=== PATIENT | male | born 1965 | race Caucasian/White ===

== ENCOUNTER 2016-12-19 06:55 | Day surgery (SDC) | payer BC ==
[~2016-12-19 06:55] MED LIST: Lactated Ringers 1,000 ML IV SCH
--- NOTE | 2016-12-19 07:41 | PCM.PREANE ---
Preanesthetic Assessment - Anesthesia/Transfusion/Family Hx Anesthesia History: Prior Anesthesia Without Reaction Family History of Anesthesia Reaction: No Transfusion History: No Prior Transfusion(s) Intubation History: Unknown - Review of Systems General: No Symptoms Pulmonary: No Symptoms Cardiovascular: No Symptoms Gastrointestinal: Other (loose stools, h/o colon polyps) Neurological: No Symptoms Other: Reports: None - Physical Assessment Height: 1.93 m Weight: 124.284 kg ASA Class: 3 Mental Status: Alert & Oriented x3 Airway Class: Mallampati = 3 Dentition: Reports: [place]s) (multiple crowns upper and lower) Thyro-Mental Finger Breadths: 2 Mouth Opening Finger Breadths: 3 ROM/Head Extension: Full Lungs: Clear to Auscultation, Normal Respiratory Effort Cardiovascular: Regular Rate, Regular Rhythm - Allergies Allergies/Adverse Reactions: Allergies Allergy/AdvReac Type Severity Reaction Status Date / Time No Known Allergies Allergy Verified 06/26/15 15:10 - Blood Blood Available: No - Anesthesia Plan Pre-Op Medication Ordered: None - Acknowledgements Anesthesia Type Planned: MAC Pt an Appropriate Candidate for the Planned Anesthesia: Yes Alternatives and Risks of Anesthesia Discussed w Pt/Guardian: Yes Pt/Guardian Understands and Agrees with Anesthesia Plan: Yes PreAnesthesia Questionnaire HEENT History: Reports: Allergic Rhinitis, Other (See Below) Other HEENT History: wears glasses Cardiovascular History: Reports: High Cholesterol, Hypertension Respiratory History: Reports: COPD, Sleep Apnea, Other (See Below) Other Respiratory History: "seasonal asthma", uses CPAP Gastrointestinal History: Reports: Colon Polyp, GERD Genitourinary History: Reports: BPH Musculoskeletal History: Reports: Arthritis, Back Pain, Chronic, Gout, Osteoarthritis Neurological History: Reports: None Psychiatric History: Reports: Anxiety Endocrine/Metabolic History: Reports: Diabetes, Type II, Obesity/BMI 30+ Hematologic History: Reports: None Immunologic History: Reports: None Oncologic (Cancer) History: Reports: None Dermatologic History: Reports: None - Infectious Disease History Infectious Disease History: Reports: Chicken Pox - Past Surgical History Head Surgeries/Procedures: Reports: None HEENT Surgical History: Reports: None Cardiovascular Surgical History: Reports: None Respiratory Surgical History: Reports: None GI Surgical History: Reports: Cholecystectomy, Colonoscopy (8 years ago) Male Surgical History: Reports: None Endocrine Surgical History: Reports: None Neurological Surgical History: Reports: None Musculoskeletal Surgical History: Reports: Arthroscopic Knee, Knee Replacement Other Musculoskeletal Surgeries/Procedures:: hx foot surgery, fasciotomy, left total knee arthroplasty - History Comment History Comment: etoh "occasional" - SUBSTANCE USE Smoking Status *Q: Former Smoker (quit 20 years ago) Tobacco Use Within Last Twelve Months:  Other Tobacco Use Within Last Twelve Months: quit smoking 25 yrs ago Recreational Drug Use History: No - HOME MEDS Home Medications: Home Meds ALPRAZolam [Alprazolam] 0.5 mg PO DAILY PRN 05/07/16 [History] Allopurinol [Zyloprim] 300 mg PO ACBREAKFAST 05/07/16 [History] Cholecalciferol (Vitamin D3) [Vitamin D3] 1,000 mg PO DAILY 05/07/16 [History] Fish Oil/[place]-3 Fatty Acids [Fish Oil 1,000 MG] 1,000 mg PO ASDIRECTED [History] Gabapentin [Gralise] 2 tab PO BEDTIME 05/07/16 [History] Lisinopril 10 mg PO DAILY 05/07/16 [History] Montelukast Sodium 10 mg PO BEDTIME PRN 05/07/16 [History] Pantoprazole Sodium [Protonix] 40 mg PO ACBREAKFAST 05/07/16 [History] Rosuvastatin [Crestor] 10 mg PO ASDIRECTED 05/07/16 [History] Vitamin B Complex 1 tab PO DAILY 05/07/16 [History] metFORMIN HCl [Metformin HCl] 500 mg PO TID 05/07/16 [History] Fluticasone/Vilanterol [Breo Ellipta 200-25 Mcg INH] 1 inhalation INH DAILY PRN 12/17/16 [History] Gabapentin [Neurontin] 300 mg PO ACBREAKFAST 12/17/16 [History] Indomethacin 50 mg PO TID PRN 12/17/16 [History] Mometasone Furoate [Nasonex] 1 spray NASBOTH DAILY PRN 12/17/16 [History] Ubidecarenone [Coq-10] 1 tab PO ASDIRECTED 12/17/16 [History] - CURRENT (IN HOUSE) MEDS Current Meds: Current Medications Lactated Ringer's (Ringers, Lactated) 1,000 mls @ 125 mls/hr IV ASDIRECTED [facility]
[2016-12-19] MEDS ORDERED: Propofol 200 MG/20 ML SDV ONE ×2 (07:49→08:53)
[2016-12-19] MEDS ORDERED: Midazolam 1 MG/ML 2 ML SDV ONE (07:49)
[2016-12-19] MEDS ORDERED: Lactated Ringers 1,000 ML IV SCH (09:15)
--- NOTE | 2016-12-19 09:19 | PCM.OPNOTE ---
- General Post-Op/Procedure Note Date of Surgery/Procedure: 12/19/16 Operative Procedure(s): Colonoscopy Pre Op Diagnosis: Personal history of colon polyps Post-Op Diagnosis: Sigmoid diverticulosis. Internal hemorrhoids Anesthesia Technique: MAC (ASA III) Primary Surgeon: Emil Jacob Condition: Good Free Text/Narrative:: Dictation [id number] CPT CODE 11007
[2016-12-19 10:37] VITALS: BP 109/58
--- NOTE | 2016-12-19 10:54 | OR ---
SURGEON: Emil Jacob M.D. DATE OF PROCEDURE: 12/19/2016 OPERATION PERFORMED: Colonoscopy. ANESTHESIA: MAC. ASA CLASSIFICATION: III. PREOPERATIVE DIAGNOSIS: Personal history of colon polyps. POSTOPERATIVE DIAGNOSIS: Sigmoid diverticulosis. Hemorrhoids. DESCRIPTION OF PROCEDURE: The patient was taken to the endoscopy room and positioned on the endoscopy table in the left lateral decubitus position. Time-out was called for appropriate identification of patient and procedure. Monitored anesthesia care was provided. The colonoscope was inserted into the rectum and advanced with moderate difficulty to the cecum where the colonoscope was retroflexed to visualize the ascending colon from below. The colonoscope was then straightened and slowly withdrawn. The cecum, ascending colon, hepatic flexure, transverse colon, splenic flexure, and descending colon showed no tumors, polyps, diverticula, or angiodysplastic changes. Sigmoid colon demonstrates moderate diverticular change. No stricture, spasm, or bleeding was noted. No polyps were encountered in the sigmoid colon. The colonoscope was then withdrawn to the rectum. The patient does have internal hemorrhoids. No acute bleeding. The colonoscope was retroflexed in the rectum to visualize the anal orifice from above. No tumors or polyps were seen. Again, I noted chronic hemorrhoidal changes. The colonoscope was then straightened, the rectum aspirated, and the colonoscope removed. The patient tolerated the procedure well and was taken to recovery room in stable condition. MERY REYES /[id number] YOGI
== END 2016-12-19 10:00 | disposition home or self-care (01) ==
LOC: MW.SDS 06:55
PROVIDERS: ATTEND Surgery
PROC: 0DJD8ZZ Inspection of Lower Intestinal Tract, Via Natural or Artificial Opening Endoscopic (ICD-10-PCS; principal; 2016-12-19)
DX: Z12.11 Encounter for screening for malignant neoplasm of colon (principal); K57.30 Diverticulosis of large intestine without perforation or abscess without bleeding; K64.8 Other hemorrhoids; Z87.19 Personal history of other diseases of the digestive system; F41.9 Anxiety disorder, unspecified; M19.90 Unspecified osteoarthritis, unspecified site; J44.9 Chronic obstructive pulmonary disease, unspecified; E11.9 Type 2 diabetes mellitus without complications; E78.5 Hyperlipidemia, unspecified; K21.9 Gastro-esophageal reflux disease without esophagitis; M10.9 Gout, unspecified; I10 Essential (primary) hypertension; E29.1 Testicular hypofunction; M75.42 Impingement syndrome of left shoulder; M17.12 Unilateral primary osteoarthritis, left knee; M19.019 Primary osteoarthritis, unspecified shoulder; G47.30 Sleep apnea, unspecified; E78.00 Pure hypercholesterolemia, unspecified; N40.0 Benign prostatic hyperplasia without lower urinary tract symptoms; E66.9 Obesity, unspecified; Z87.01 Personal history of pneumonia (recurrent); Z79.84 Long term (current) use of oral hypoglycemic drugs; Z79.899 Other long term (current) drug therapy; Z96.652 Presence of left artificial knee joint; Z90.49 Acquired absence of other specified parts of digestive tract; Z98.890 Other specified postprocedural states; Z87.891 Personal history of nicotine dependence; Z68.33 Body mass index [BMI] 33.0-33.9, adult; Z99.89 Dependence on other enabling machines and devices
CPT/HCPCS: 45378; 82962; J2250; J7120; 00810; J2704

== ENCOUNTER 2017-11-07 22:21 | Emergency (ER) | payer OTHER, BC ==
--- NOTE | 2017-11-07 22:38 | EDM.PDOC ---
ED HPI GENERAL MEDICAL PROBLEM - General Chief Complaint: Neuro Symptoms/Deficits Stated Complaint: NUMBNESS ON RIGHT SIDE, RT EAR PAIN, NUMB TONGUE Time Seen by Provider: 11/07/17 22:38 Source of Information: Reports: Patient - History of Present Illness INITIAL COMMENTS - FREE TEXT/NARRATIVE: HISTORY AND PHYSICAL: History of present illness: [Patient presents with right-sided facial weakness including the forehead, he noticed this this morning while shaving, he does have some ear pain and actually an ear infection on the left, as well as complains of tingling of the tongue dry irritated eye and headache no fever nausea vomiting chills sweats no chest pain shortness of breath dizziness or palpitation no bowel or urine symptoms] Review of systems: As per history of present illness and below otherwise all systems reviewed and negative. Past medical history: As per history of present illness and as reviewed below otherwise noncontributory. Surgical history: As per history of present illness and as reviewed below otherwise noncontributory. Social history: No reported history of drug or alcohol abuse. Family history: As per history of present illness and as reviewed below otherwise noncontributory. Physical exam: HEENT: Atraumatic, normocephalic, pupils reactive, negative for conjunctival pallor or scleral icterus, mucous membranes moist, throat clear, neck supple, nontender, trachea midline. Left otitis media Lungs: Clear to auscultation, breath sounds equal bilaterally, chest nontender. Heart: S1S2, regular, negative for clicks, rubs, or JVD. Abdomen: Soft, nondistended, nontender. Negative for masses or hepatosplenomegaly. Negative for costovertebral tenderness. Pelvis: Stable nontender. Genitourinary: Deferred. Rectal: Deferred. Extremities: Atraumatic, negative for cords or calf pain. Neurovascular unremarkable. Neuro: Awake, alert, oriented. Cranial nerves II through XII unremarkable on the left. Cerebellum unremarkable. Motor and sensory unremarkable throughout. Exam nonfocal. 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 Right Head Pain Score (Numeric/FACES): 3 - Related Data Allergies Allergy/AdvReac Type Severity Reaction Status Date / Time No Known Allergies Allergy Verified 06/26/15 15:10 Home Meds: Home Meds ALPRAZolam [Alprazolam] 0.5 mg PO DAILY PRN 05/07/16 [History] Allopurinol [Zyloprim] 300 mg PO ACBREAKFAST 05/07/16 [History] Cholecalciferol (Vitamin D3) [Vitamin D3] 1,000 mg PO DAILY 05/07/16 [History] Fish Oil/[place]-3 Fatty Acids [Fish Oil 1,000 MG] 1,000 mg PO ASDIRECTED [History] Gabapentin [Gralise] 2 tab PO BEDTIME 05/07/16 [History] Lisinopril 10 mg PO DAILY 05/07/16 [History] Montelukast Sodium 10 mg PO BEDTIME PRN 05/07/16 [History] Pantoprazole Sodium [Protonix] 40 mg PO ACBREAKFAST 05/07/16 [History] Rosuvastatin [Crestor] 10 mg PO ASDIRECTED 05/07/16 [History] Vitamin B Complex 1 tab PO DAILY 05/07/16 [History] metFORMIN HCl [Metformin HCl] 500 mg PO TID 05/07/16 [History] Fluticasone/Vilanterol [Breo Ellipta 200-25 Mcg INH] 1 inhalation INH DAILY PRN 12/17/16 [History] Gabapentin [Neurontin] 300 mg PO ACBREAKFAST 12/17/16 [History] Indomethacin 50 mg PO TID PRN 12/17/16 [History] Mometasone Furoate [Nasonex] 1 spray NASBOTH DAILY PRN 12/17/16 [History] Ubidecarenone [Coq-10] 1 tab PO ASDIRECTED 12/17/16 [History] Past Medical History HEENT History: Reports: Allergic Rhinitis, Other (See Below) Other HEENT History: wears glasses Cardiovascular History: Reports: High Cholesterol, Hypertension Respiratory History: Reports: COPD, Sleep Apnea, Other (See Below) Other Respiratory History: "seasonal asthma", uses CPAP Gastrointestinal History: Reports: Colon Polyp, GERD Genitourinary History: Reports: BPH Musculoskeletal History: Reports: Arthritis, Back Pain, Chronic, Gout, Osteoarthritis Neurological History: Reports: None Psychiatric History: Reports: Anxiety Endocrine/Metabolic History: Reports: Diabetes, Type II, Obesity/BMI 30+ Hematologic History: Reports: None Immunologic History: Reports: None Oncologic (Cancer) History: Reports: None Dermatologic History: Reports: None - Infectious Disease History Infectious Disease History: Reports: Chicken Pox - Past Surgical History Head Surgeries/Procedures: Reports: None HEENT Surgical History: Reports: None Cardiovascular Surgical History: Reports: None Respiratory Surgical History: Reports: None GI Surgical History: Reports: Cholecystectomy, Colonoscopy Male Surgical History: Reports: None Endocrine Surgical History: Reports: None Neurological Surgical History: Reports: None Musculoskeletal Surgical History: Reports: Arthroscopic Knee, Knee Replacement Other Musculoskeletal Surgeries/Procedures:: hx foot surgery, fasciotomy, left total knee arthroplasty - History Comment History Comment: etoh "occasional" Social & Family History - Family History Family Medical History: Noncontributory Neurological: Reports: CVA - Caffeine Use Caffeine Use: Reports: Coffee, Soda ED ROS GENERAL - Review of Systems Review Of Systems: See Below ED EXAM, GENERAL - Physical Exam Exam: See Below Course - Vital Signs Last Recorded V/S: Last Vital Signs Temp 98.7 F 11/07/17 22:38 Pulse 60 11/07/17 22:38 Resp 18 11/07/17 22:38 BP 192/113 H 11/07/17 22:38 Pulse Ox 98 11/07/17 22:38 - Orders/Labs/Meds Orders: Active Orders 24 hr Category Date Time Status EKG Documentation Completion [RC] STAT Care 11/07/17 22:37 Active Chest 1V Frontal [CR] Stat Exams 11/07/17 22:37 Taken Head wo Cont [CT] Stat Exams 11/07/17 22:37 Taken Labs: Laboratory Tests 11/07/17 11/07/17 11/07/17 Range/Units 22:44 22:44 22:44 WBC 6.89 (4.0-11.0) K/uL RBC 4.92 (4.50-5.90) M/uL Hgb 14.8 (13.0-17.0) g/dL Hct 42.5 (38.0-50.0) % MCV 86.4 (80.0-98.0) fL MCH 30.1 (27.0-32.0) pg MCHC 34.8 (31.0-37.0) g/dL RDW Std Deviation 42.9 (28.0-62.0) fl RDW Coeff of Best 14 (11.0-15.0) % Plt Count 207 (150-400) K/uL MPV 9.50 (7.40-12.00) fL Neut % (Auto) 50.6 (48.0-80.0) % Lymph % (Auto) 36.3 (16.0-40.0) % Cobb % (Auto) 5.2 (0.0-15.0) % Eos % (Auto) 7.3 H (0.0-7.0) % Baso % (Auto) 0.6 (0.0-1.5) % Neut # (Auto) 3.5 (1.4-5.7) K/uL Lymph # (Auto) 2.5 H (0.6-2.4) K/uL Cobb # (Auto) 0.4 (0.0-0.8) K/uL Eos # (Auto) 0.5 (0.0-0.7) K/uL Baso # (Auto) 0.0 (0.0-0.1) K/uL Nucleated RBC % 0.0 /100WBC Nucleated RBCs # 0 K/uL INR 0.97 Sodium 140 (136-148) mmol/L Potassium 3.8 (3.5-5.1) mmol/L Chloride 101 (98-107) mmol/L Carbon Dioxide 28.4 (21.0-32.0) mmol/L BUN 12 (7.0-18.0) mg/dL Creatinine 1.1 (0.8-1.3) mg/dL Est Cr Clr Drug Dosing 97.54 mL/min Estimated GFR (MDRD) > 60.0 ml/min Glucose 101 (74-106) mg/dL Calcium 9.1 (8.5-10.1) mg/dL Total Bilirubin 0.4 (0.2-1.0) mg/dL AST 31 (15-37) IU/L ALT 63 (14-63) IU/L Alkaline Phosphatase 52 (46-116) U/L Troponin I < 0.050 (0.000-0.056) ng/mL Total Protein 8.0 (6.4-8.2) g/dL Albumin 4.3 (3.4-5.0) g/dL Globulin 3.7 H (2.0-3.5) g/dL Albumin/Globulin Ratio 1.2 L (1.3-2.8) Meds: Medications Discontinued Medications Generic Name Dose Route Start Last Admin Trade Name Monica PRN Reason Stop Dose Admin Methylprednisolone Sodium Succinate 125 mg 11/08/17 00:23 11/08/17 00:42 Solu-Medrol IM 11/08/17 00:24 125 mg ONETIME ONE Administration Departure - Departure Time of Disposition: 00:49 Disposition: Home, Self-Care 01 Condition: Good Clinical Impression: Copeland's palsy - Discharge Information Referrals: Jennifer Richey DO [Primary Care Provider] - Forms: ED Department Discharge Additional Instructions: The following information is given to patients seen in the emergency department who are being discharged to home. This information is to outline your options for follow-up care. We provide all patients seen in our emergency department with a follow-up referral. The need for follow-up, as well as the timing and circumstances, are variable depending upon the specifics of your emergency department visit. If you don't have a primary care physician on staff, we will provide you with a referral. We always advise you to contact your personal physician following an emergency department visit to inform them of the circumstance of the visit and for follow-up with them and/or the need for any referrals to a consulting specialist. The emergency department will also refer you to a specialist when appropriate. This referral assures that you have the opportunity for follow-up care with a specialist. All of these measure are taken in an effort to provide you with optimal care, which includes your follow-up. Under all circumstances we always encourage you to contact your private physician who remains a resource for coordinating your care. When calling for follow-up care, please make the office aware that this follow-up is from your recent emergency room visit. If for any reason you are refused follow-up, please contact the [facility] emergency department at and asked to speak to the emergency department charge nurse. - My Orders Last 24 Hours: My Active Orders 11/07/17 22:37 EKG Documentation Completion [RC] STAT Chest 1V Frontal [CR] Stat Head wo Cont [CT] Stat - Assessment/Plan Last 24 Hours: My Active Orders 11/07/17 22:37 EKG Documentation Completion [RC] STAT Chest 1V Frontal [CR] Stat Head wo Cont [CT] Stat
[2017-11-07 23:14] LABS: CHLORIDE,CL 101 mmol/L (98-107); SODIUM,NA 140 mmol/L (136-148)
[2017-11-08] MEDS ORDERED: methylPREDNISolone Sodium Succinate 125 MG/2 ML SDV IM ONE (00:23)
[2017-11-08 01:09] VITALS: BP 152/100
--- NOTE | 2017-11-09 14:43 | CT ---
EXAM DATE: 11/07/17 PATIENT'S AGE: 52 Patient: ANTONY BASS Facility: [place], [place] Site . Site : 1965 Study: CT Head WO CONT [id number]/16/2018 11:36:10 PM Ordering Physician: Doctor Ramírez Final Report: HISTORY: Headache. Right-sided facial droop, right ear pain. TECHNIQUE: Noncontrast head CT. COMPARISON: No prior. FINDINGS: There is no acute intracranial hemorrhage or acute ischemic infarct. No mass effect or midline shift. No hydrocephalus. No extra-axial collection or hematoma. No acute loss of harp-white differentiation. Mastoid air cells are clear. The paranasal sinuses are clear. No skull fracture. IMPRESSION: No acute intracranial disease. Dictated by Daryl Duval MD @ 11/08/2017 12:38:30 AM Please note that all CT scans at this facility use dose modulation, iterative reconstruction, and/or weight-based dosing when appropriate to reduce radiation dose to as low as reasonably achievable. Dictated by: Daryl Duval MD @ 11/08/2017 00:38:34 (Electronic Signature) Report Signed by Proxy. [facility] HOSPITALSuleiman
--- NOTE | 2017-11-09 14:44 | CR ---
EXAM DATE: 11/07/17 PATIENT'S AGE: 52 Patient: ANTONY BASS Facility: [place], [place] Site . Site : 1965 Study: XRay Chest [id number]/16/2018 11:41:08 PM Ordering Physician: Doctor Ramírez Final Report: INDICATION: Right-sided weakness, hypertension TECHNIQUE: Chest one view COMPARISON: April 22, 2016 FINDINGS: Cardiovascular and mediastinum: Heart size and vasculature are normal in caliber and appearance. Mediastinum is within normal limits. Lungs and pleural spaces: Lungs are clear. No sign of infiltrate or mass. No sign of pleural effusion. No pneumothorax. Bones and soft tissues: No significant findings. IMPRESSION: No sign of acute disease. Dictated by Ellen Garg MD @ Nov 08 2017 12:40AM (Electronic Signature) Report Signed by Proxy. YOGI
== END 2017-11-08 01:04 | disposition home or self-care (01) ==
LOC: MW.ED 22:21
DX: G51.0 Bell's palsy (principal); E78.00 Pure hypercholesterolemia, unspecified; I10 Essential (primary) hypertension; K21.9 Gastro-esophageal reflux disease without esophagitis; E11.9 Type 2 diabetes mellitus without complications; Z79.899 Other long term (current) drug therapy; Z79.84 Long term (current) use of oral hypoglycemic drugs
CPT/HCPCS: 36415; 70450; 71045; 80053; 84484; 85025; 85610; 93005; 96372; 99285; J2930; 99283

== ENCOUNTER 2017-11-12 01:24 | Emergency (ER) | payer OTHER, BC ==
[2017-11-12] MEDS ORDERED: Ondansetron 4 MG/2 ML SDV IVPUSH ONE (01:46)
[2017-11-12] MEDS ORDERED: Sodium Chloride 0.9% 1,000 ML IV ONE (01:46)
--- NOTE | 2017-11-12 01:46 | EDM.PDOC ---
ED HPI GENERAL MEDICAL PROBLEM - General Chief Complaint: General Stated Complaint: VOMITING, DIZZY Time Seen by Provider: 11/12/17 01:46 Source of Information: Reports: Patient History Limitations: Reports: No Limitations - History of Present Illness INITIAL COMMENTS - FREE TEXT/NARRATIVE: HISTORY AND PHYSICAL: History of present illness: 52-year-old male presenting in the emergency department with chief complaint of nausea and vomiting starting today. Patient was recently in the emergency department and diagnosed with [place] palsy. He has been on steroids and recently was started on antivirals by his primary care provider Dr. Andrade. States that he started these antivirals on Thursday and was doing well. He is also been treated for a right otitis media and is still complaining of some right ear pain that is intermittent. States that his right ear seems to bother him as well as the "bone behind it". It comes and goes and is not always painful. He denies any associated fever, chills, malaise , diarrhea, or other signs of systemic infection. Did feel somewhat lightheaded today with his nausea and vomiting so came to emergency department for further evaluation. Denies any foreign travel, changes in diet, or new environmental exposures. States that he was doing well initially on the antivirals and reports no nausea with them. Currently denies any chest pain, palpitation, shortness breath, syncopal episodes, or focal neurologic deficits. On general appearance patient has partial facial paralysis on the left side as previously mentioned in his visit here in the emergency department. States that he has had no significant improvement in his bells palsy. Denies any new headaches. Mild erythema to the right external canal of the right ear. Review of systems: As per history of present illness and below otherwise all systems reviewed and negative. Past medical history: As per history of present illness and as reviewed below otherwise noncontributory. Surgical history: As per history of present illness and as reviewed below otherwise noncontributory. Social history: No reported history of drug or alcohol abuse. Family history: As per history of present illness and as reviewed below otherwise noncontributory. Physical exam: HEENT: see above Atraumatic, normocephalic, pupils reactive, negative for conjunctival pallor or scleral icterus, mucous membranes moist, throat clear, neck supple, nontender, trachea midline. Lungs: Clear to auscultation, breath sounds equal bilaterally, chest nontender. Heart: S1S2, regular, negative for clicks, rubs, or JVD. Abdomen: Soft, nondistended, nontender. Negative for masses or hepatosplenomegaly. Negative for costovertebral tenderness. Pelvis: Stable nontender. Genitourinary: Deferred. Rectal: Deferred. Extremities: Atraumatic, negative for cords or calf pain. Neurovascular unremarkable. Neuro: Awake, alert, oriented. see above partial facial paralysis left. Cerebellum unremarkable. Motor and sensory unremarkable throughout. Exam nonfocal. Diagnostics: CBC, CMP Therapeutics: 1 L normal saline IV 1, 1 L LR 1, 8 mg IV Zofran, 25 mg IM Phenergan ofloxacin otic drops, Phenergan 25 mg by mouth every 6 hours when necessary nausea Impression: Nausea and vomiting suspect possible viral gastroenteritis Otitis externa Plan: Patient felt significantly better after 2 L of IV fluids as well as Zofran and Phenergan. He still is having some right ear pain and on exam seem to have a mild otitis externa. Prescribed him ofloxacin drops as well as Phenergan for his nausea and vomiting. Instructed him to follow with his primary care provider and return to emergency department if he had a new or worsening symptoms. If he continues to have any right ear pain may consider a maxillofacial CT. head Pain Score (Numeric/FACES): 3 - Related Data Allergies Allergy/AdvReac Type Severity Reaction Status Date / Time No Known Allergies Allergy Verified 11/12/17 01:38 Home Meds: Home Meds ALPRAZolam [Alprazolam] 0.5 mg PO DAILY PRN 05/07/16 [History] Allopurinol [Zyloprim] 300 mg PO DAILY 05/07/16 [History] Fish Oil/[place]-3 Fatty Acids [Fish Oil 1,000 MG] 1,000 mg PO ASDIRECTED [History] Lisinopril 10 mg PO DAILY 05/07/16 [History] Montelukast Sodium 10 mg PO BEDTIME PRN 05/07/16 [History] Pantoprazole Sodium [Protonix] 40 mg PO ACBREAKFAST 05/07/16 [History] Rosuvastatin [Crestor] 10 mg PO BEDTIME 05/07/16 [History] metFORMIN HCl [Metformin HCl] 1,000 mg PO DAILY 12/14/16 [History] Mometasone Furoate [Nasonex] 1 spray NASBOTH DAILY PRN 12/17/16 [History] Ubidecarenone [Coq-10] 1 tab PO ASDIRECTED 12/17/16 [History] Amoxicillin 1 tab PO BID 11/12/17 [History] Aspirin 1 tab PO DAILY 11/12/17 [History] metFORMIN HCl [Metformin HCl] 1,500 mg PO BEDTIME 11/12/17 [History] valACYclovir HCl [Valtrex] 1,000 mg PO BID 11/12/17 [History] Past Medical History HEENT History: Reports: Allergic Rhinitis, Other (See Below) Other HEENT History: wears glasses Cardiovascular History: Reports: High Cholesterol, Hypertension Respiratory History: Reports: COPD, Sleep Apnea, Other (See Below) Other Respiratory History: "seasonal asthma", uses CPAP Gastrointestinal History: Reports: Colon Polyp, GERD Genitourinary History: Reports: BPH Musculoskeletal History: Reports: Arthritis, Back Pain, Chronic, Gout, Osteoarthritis Neurological History: Reports: None Psychiatric History: Reports: Anxiety Endocrine/Metabolic History: Reports: Diabetes, Type II, Obesity/BMI 30+ Hematologic History: Reports: None Immunologic History: Reports: None Oncologic (Cancer) History: Reports: None Dermatologic History: Reports: None - Infectious Disease History Infectious Disease History: Reports: Chicken Pox - Past Surgical History Head Surgeries/Procedures: Reports: None HEENT Surgical History: Reports: None Cardiovascular Surgical History: Reports: None Respiratory Surgical History: Reports: None GI Surgical History: Reports: Cholecystectomy, Colonoscopy Male Surgical History: Reports: None Endocrine Surgical History: Reports: None Neurological Surgical History: Reports: None Musculoskeletal Surgical History: Reports: Arthroscopic Knee, Knee Replacement Other Musculoskeletal Surgeries/Procedures:: hx foot surgery, fasciotomy, left total knee arthroplasty - History Comment History Comment: etoh "occasional" Social & Family History - Family History Family Medical History: Noncontributory Neurological: Reports: CVA - Caffeine Use Caffeine Use: Reports: Coffee, Soda ED ROS GENERAL - Review of Systems Review Of Systems: ROS reveals no pertinent complaints other than HPI. ED EXAM, GENERAL - Physical Exam Exam: See Below Course - Vital Signs Last Recorded V/S: Last Vital Signs Temp 97 F 11/12/17 01:24 Pulse 53 L 11/12/17 03:55 Resp 18 11/12/17 03:55 BP 129/83 11/12/17 03:55 Pulse Ox 97 11/12/17 03:55 - Orders/Labs/Meds Orders: Active Orders 24 hr Category Date Time Status Lactated Ringers [Ringers, Lactated] 1,000 ml Med 11/12/17 03:48 Active IV .BOLUS Medication Orders Lactated Ringer's (Ringers, Lactated) 1,000 mls @ 999 mls/hr IV .BOLUS ONE Stop: 11/12/17 04:48 Last Admin: 11/12/17 03:55 Dose: 999 mls/hr Labs: Laboratory Tests 11/12/17 11/12/17 Range/Units 01:50 01:50 WBC 9.56 (4.0-11.0) K/uL RBC 4.70 (4.50-5.90) M/uL Hgb 14.1 (13.0-17.0) g/dL Hct 39.9 (38.0-50.0) % MCV 84.9 (80.0-98.0) fL MCH 30.0 (27.0-32.0) pg MCHC 35.3 (31.0-37.0) g/dL RDW Std Deviation 41.7 (28.0-62.0) fl RDW Coeff of Best 14 (11.0-15.0) % Plt Count 175 (150-400) K/uL MPV 9.80 (7.40-12.00) fL Neut % (Auto) 62.4 (48.0-80.0) % Lymph % (Auto) 27.3 (16.0-40.0) % [place] % (Auto) 6.9 (0.0-15.0) % Eos % (Auto) 3.1 (0.0-7.0) % Baso % (Auto) 0.3 (0.0-1.5) % Neut # (Auto) 6.0 H (1.4-5.7) K/uL Lymph # (Auto) 2.6 H (0.6-2.4) K/uL [place] # (Auto) 0.7 (0.0-0.8) K/uL Eos # (Auto) 0.3 (0.0-0.7) K/uL Baso # (Auto) 0.0 (0.0-0.1) K/uL Nucleated RBC % 0.0 /100WBC Nucleated RBCs # 0 K/uL Sodium 141 (136-148) mmol/L Potassium 3.8 (3.5-5.1) mmol/L Chloride 103 (98-107) mmol/L Carbon Dioxide 27.0 (21.0-32.0) mmol/L BUN 8 (7.0-18.0) mg/dL Creatinine 1.0 (0.8-1.3) mg/dL Est Cr Clr Drug Dosing 107.29 mL/min Estimated GFR (MDRD) > 60.0 ml/min Glucose 127 H (74-106) mg/dL Calcium 8.6 (8.5-10.1) mg/dL Total Bilirubin 0.4 (0.2-1.0) mg/dL AST 27 (15-37) IU/L ALT 60 (14-63) IU/L Alkaline Phosphatase 40 L (46-116) U/L Total Protein 6.9 (6.4-8.2) g/dL Albumin 3.9 (3.4-5.0) g/dL Globulin 3.0 (2.0-3.5) g/dL Albumin/Globulin Ratio 1.3 (1.3-2.8) Meds: Medications Generic Name Dose Route Start Last Admin Trade Name Freq PRN Reason Stop Dose Admin Lactated Ringer's 1,000 mls @ 999 mls/hr 11/12/17 03:48 11/12/17 03:55 Ringers, Lactated IV 11/12/17 04:48 999 mls/hr .BOLUS ONE Administration Discontinued Medications Generic Name Dose Route Start Last Admin Trade Name Freq PRN Reason Stop Dose Admin Sodium Chloride 1,000 mls @ 999 mls/hr 11/12/17 01:46 11/12/17 01:57 Normal Saline IV 11/12/17 02:46 999 mls/hr STAT ONE Administration Ondansetron HCl 8 mg 11/12/17 01:46 11/12/17 01:57 Zofran IVPUSH 11/12/17 01:47 8 mg ONETIME ONE Administration Promethazine HCl 25 mg 11/12/17 03:17 11/12/17 03:20 Phenergan IM 11/12/17 03:18 25 mg ONETIME ONE Administration Departure - Departure Time of Disposition: 04:44 Disposition: Home, Self-Care 01 Condition: Good Clinical Impression: Nausea and vomiting in adult Otitis externa of right ear Qualifiers: Otitis externa type: other infective Chronicity: acute Qualified Code(s): H60.391 - Other infective otitis externa, right ear - Discharge Information Referrals: Jennifer Richey DO [Primary Care Provider] - Forms: ED Department Discharge Additional Instructions: My general discharge The following information is given to patients seen in the emergency department who are being discharged to home. This information is to outline your options for follow-up care. We provide all patients seen in our emergency department with a follow-up referral. The need for follow-up, as well as the timing and circumstances, are variable depending upon the specifics of your emergency department visit. If you don't have a primary care physician on staff, we will provide you with a referral. We always advise you to contact your personal physician following an emergency department visit to inform them of the circumstance of the visit and for follow-up with them and/or the need for any referrals to a consulting specialist. The emergency department will also refer you to a specialist when appropriate. This referral assures that you have the opportunity for follow-up care with a specialist. All of these measure are taken in an effort to provide you with optimal care, which includes your follow-up. Under all circumstances we always encourage you to contact your private physician who remains a resource for coordinating your care. When calling for follow-up care, please make the office aware that this follow-up is from your recent emergency room visit. If for any reason you are refused follow-up, please contact the [facility] Emergency Department at and asked to speak to the emergency department charge nurse. [address] [address] Take medication as prescribed Return to emergency department if any new or worsening symptoms Follow-up with primary care. - My Orders Last 24 Hours: My Active Orders 11/12/17 03:48 Lactated Ringers [Ringers, Lactated] 1,000 ml IV .BOLUS - Assessment/Plan Last 24 Hours: My Active Orders 11/12/17 03:48 Lactated Ringers [Ringers, Lactated] 1,000 ml IV .BOLUS
[2017-11-12 02:25] LABS: CHLORIDE,CL 103 mmol/L (98-107); SODIUM,NA 141 mmol/L (136-148)
[2017-11-12] MEDS ORDERED: Promethazine 25 MG/ML SDV IM ONE (03:17)
[2017-11-12] MEDS ORDERED: Lactated Ringers 1,000 ML IV ONE (03:48)
[2017-11-12 03:56] VITALS: BP 129/83
== END 2017-11-12 04:50 | disposition home or self-care (01) ==
LOC: MW.ED 01:24
DX: R11.2 Nausea with vomiting, unspecified (principal); H60.391 Other infective otitis externa, right ear; E78.00 Pure hypercholesterolemia, unspecified; I10 Essential (primary) hypertension; J44.9 Chronic obstructive pulmonary disease, unspecified; K21.9 Gastro-esophageal reflux disease without esophagitis; E11.9 Type 2 diabetes mellitus without complications; Z79.899 Other long term (current) drug therapy; Z79.84 Long term (current) use of oral hypoglycemic drugs; Z79.82 Long term (current) use of aspirin
CPT/HCPCS: 80053; 85025; 96361; 96372; 96374; 99284; J2405; J2550; J7040; J7120